=== PATIENT | female | born 1960 | race Native Hawaiian/Other Pacific Islander ===

== ENCOUNTER 2019-06-11 14:58 | Observation (INO) | payer OTHER ==
[~2019-06-11] VITALS: Ht 157.5 cm; Wt 64.9 kg
[2019-06-11 15:05] VITALS: BP 113/86
[2019-06-11 16:15] LABS: PLATELET COUNT 347 K/uL (152-353)
[2019-06-11 16:19] LABS: SODIUM 139 mmol/L (136-145)
[2019-06-11] MEDS ORDERED: FURO40TA93 PO (18:00)
[2019-06-11] MEDS ORDERED: CARDIZEM60 MG PO (18:00)
[2019-06-11] MEDS ORDERED: DIGO0.2549 PO (18:04)
[2019-06-11 18:11] VITALS: BP 159/82; TEMP 97; Ht 157.5 cm; Wt 64.9 kg
[2019-06-11] MEDS ORDERED: METF500T PO (18:27)
[2019-06-11] MEDS ORDERED: COZAAR100 MG PO (18:28)
[2019-06-11] MEDS ORDERED: GABA300C2 PO (18:28)
[2019-06-11] MEDS ORDERED: CLOP75TA2 PO (18:29)
[2019-06-11] MEDS ORDERED: KLOR-CON M2020 MEQ PO (18:30)
[2019-06-11] MEDS ORDERED: TOUJEO SOL300 UNIT/M SC (18:33)
[2019-06-11] MEDS ORDERED: HUMULIN R100 UNIT/M SC (18:35)
[2019-06-11 20:00] VITALS: BP 158/83; TEMP 98.6
[2019-06-12] VITALS: BP 136/70; TEMP 98.2
[2019-06-12 04:00] VITALS: BP 170/87; TEMP 98.1
[2019-06-12 05:51] LABS: PLATELET COUNT 242 K/uL (152-353)
[2019-06-12 06:05] LABS: POTASSIUM 3.6 mmol/L (3.6-5.2)
[2019-06-12 08:00] VITALS: BP 148/74; TEMP 98.2
[2019-06-12 12:00] VITALS: BP 165/90; TEMP 97.7
== END 2019-06-12 14:35 | disposition home or self-care (01) ==
LOC: ED 14:58 → MED/SURG 17:25
PROVIDERS: Family Medicine; ADMIT Emergency Medicine
DX: K52.89 Other specified noninfective gastroenteritis and colitis (principal); R11.2 Nausea with vomiting, unspecified; R73.9 Hyperglycemia, unspecified; E86.0 Dehydration; I48.92 Unspecified atrial flutter; I10 Essential (primary) hypertension; K31.84 Gastroparesis; N39.0 Urinary tract infection, site not specified
CPT/HCPCS: 36415; 80053; 80162; 80307; 81000; 81002; 82150; 83036; 83605; 83690; 83735; 83880; 84484; 85027; 87077; 87086; 87088; 87186; 87502; 87651; 93005; 96365; 96366; 96374; 96375; 99220; 99284; G0378; J1956; J2405; J2550; J3490